=== PATIENT | female | born 1980 | race Caucasian/White ===

== ENCOUNTER 2019-12-07 14:47 | Emergency (ER) | payer BC, SELFPAY ==
[2019-12-07 14:55] VITALS: BP 122/98; PULSE 86; RESP 14; TEMP 36.6; O2SAT 100
--- NOTE | 2019-12-07 15:01 | ED.DENTAL ---
HPI - Dental/Oral General Chief complaint: Dental/Oral Stated complaint: tooth/gum pain Time Seen by Provider: 12/07/19 15:01 Source: patient and RN notes reviewed History of Present Illness HPI Narrative: Patient is a 39-year-old female who presents the urgent care with complaints of left lower dental pain. Patient states that approximately 5 months ago she broke off the left lower teeth. States that within the last 3 days the pain has increased with sore gums. Patient states she has been using Aleve. Denies of any fever, chills, nausea, vomiting. Patient states she does have dental insurance but has been unable to get into a dentist. No other acute complaints. No acute distress noted. Patient aware of the plan of care. Some parts of this dictation were generated by voice recognition software and may contain typographical and/or grammatical inaccuracies. Related Data Home Medications Medication Instructions Recorded Confirmed fluoxetine 20 mg PO DAILY 12/07/19 12/07/19 trazodone 50 mg PO HS 12/07/19 12/07/19 Allergies Allergy/AdvReac Type Severity Reaction Status Date / Time No Known Allergies Allergy Verified 12/07/19 15:04 Review of Systems Review of Systems: Narrative: CONSTITUTIONAL: Denies fever, chills, or sweats. EYES: Denies visual changes, redness, or discharge. ENT: Denies rhinorrhea, congestion, sore throat, or otalgia. Reports of left lower dental pain CARDIOVASCULAR: Denies chest pain, palpitations, or edema. RESPIRATORY: Denies cough or dyspnea. GASTROINTESTINAL: Denies abdominal pain, nausea, vomiting, or diarrhea. GENITOURINARY: Denies dysuria or hematuria. SKIN: Denies rash or itching. MUSCULOSKELETAL: Denies back pain, joint pain, or myalgia. NEUROLOGIC: Denies headache, numbness, or weakness. All other systems reviewed are negative, except as documented in HPI. PMFSH Comments At the time of my signature, I reviewed and agree with the nursing past medical, surgical, social, and family history. There is no relevant family history pertinent to the patient complaint. Exam Narrative: Exam Narrative: GENERAL: This is a well-nourished, well-developed patient, in no apparent distress. HEAD: normocephalic, atraumatic. EYES: PERRL. Sclera clear/white. Vision is grossly intact. EARS: External ears normal, auditory canals clear and without drainage, TMs normal without perforation. Hearing grossly intact. NOSE: External nose normal with no obvious nasal discharge, nares without redness, no rhinorrhea. THROAT: Mucous membranes moist, posterior pharynx clear. DENTAL: Very poor oral hygiene with notable periodontal disease, excess dental calculus throughout, broken/avulsed lower left premolar through lower left second molar tooth #21 through 18 NECK: Neck supple, non-tender without lymphadenopathy, masses or thyromegaly. SKIN: warm, intact with no suspicious lesions or rash, good texture and turgor. NEURO: awake, alert, and oriented to person, place and time. There were no obvious focal neurologic abnormalities. EXTREMITIES: No clubbing, cyanosis, or edema. Course Vital Signs Vital signs: Vital Signs Temperature 97.8 F 12/07/19 14:55 Pulse Rate 86 12/07/19 14:55 Respiratory Rate 14 12/07/19 14:55 Blood Pressure 122/98 H 12/07/19 14:55 Pulse Oximetry 100 12/07/19 14:55 Temperature 97.8 F 12/07/19 14:55 Pulse Rate 86 12/07/19 14:55 Respiratory Rate 14 12/07/19 14:55 Blood Pressure 122/98 H 12/07/19 14:55 Pulse Oximetry 100 12/07/19 14:55 Reviewed-patient is informed that they may have pre-hypertension or hypertension based on a blood pressure reading in the department. I recommend the patient call the primary care provider listed on their discharge instructions or a physician of their choice this week to arrange follow-up for further evaluation of possible pre-hypertension or hypertension. MDM - Dental/Oral MDM Narrative Medical decision making narrative: Advised the pa
== END 2019-12-07 15:14 | disposition home or self-care (01) ==
PROVIDERS: Emergency Provider Nurse Practitioner Family
DX: K04.7 Periapical abscess without sinus (principal); K02.9 Dental caries, unspecified
CPT/HCPCS: 99213; G0463

== ENCOUNTER 2020-01-04 15:07 | Emergency (ER) | payer BC, SELFPAY ==
[2020-01-04 15:12] VITALS: BP 137/93; PULSE 93; RESP 20; TEMP 36.4; O2SAT 100
--- NOTE | 2020-01-04 15:36 | ED.DENTAL ---
HPI - Dental/Oral General Chief complaint: Dental/Oral Stated complaint: tooth pain Time Seen by Provider: 01/04/20 15:37 Source: patient Mode of arrival: ambulatory Limitations: no limitations History of Present Illness HPI Narrative: Belgica Callejas is a 39 yo female with a PMH of depression who comes to express care with dental pain. Has very poor dentition on the left with broken tooth in the back of lower molars states that is been hurting her for couple days but today the pain is unbearable (tooth 17-19) Related Data Home Medications Medication Instructions Recorded Confirmed fluoxetine 20 mg PO DAILY 12/07/19 12/07/19 trazodone 50 mg PO HS 12/07/19 12/07/19 Allergies Allergy/AdvReac Type Severity Reaction Status Date / Time clavulanic acid Allergy Blister Verified 01/04/20 15:26 Review of Systems Review of Systems: Narrative: CONSTITUTIONAL: Denies fever, chills, sweats. EYES: Denies visual changes, redness, discharge. ENT: Denies rhinorrhea, congestion, sore throat, otalgia. Multiple broken teeth CARDIOVASCULAR: Denies chest pain, palpitations, edema. RESPIRATORY: Denies dyspnea, wheezing, cough GASTROINTESTINAL: Denies abdominal pain, nausea, vomiting, diarrhea. GENITOURINARY: Denies dysuria, hematuria, abnormal discharge SKIN: Denies rash or itching. NEUROLOGIC: Denies numbness, or focal weakness. PSYCHIATRIC: Denies anxiety or depression. PMFSH Past Medical History Medical History Need for dental care Family History Family History (Updated 01/04/20 @ 15:42 by Ashley Bennett CNP) Other No acute medical problems Social History Social History Smoking status: Current every day smoker Tobacco type: cigarettes Alcohol intake: current Comments At time of signature, I agree with nursing past medical, surgical, social and family history. There is no relevant family history pertinent to the presenting complaint. Patient's blood pressure is elevated today should follow up with primary care physician Exam Narrative: Exam Narrative: GENERAL: This is a well-nourished, well-developed patient, in mild distress. HEAD: normocephalic, atraumatic. EYE. Sclera clear/white. Vision is grossly intact. EARS: External ears normal, Hearing grossly intact. NOSE: External nose normal without nasal discharge, nares without redness, no rhinorrhea Mouth: Multiple teeth broken or fractured the gum THROAT: Mucous membranes moist, posterior pharynx NECK: Neck supple, CARDIOVASCULAR: Regular rate and rhythm without murmurs, gallops, or rubs. RESPIRATORY: Clear to auscultation. Breath sounds equal bilaterally. No wheezes, rales, or rhonchi. GASTROINTESTINAL: Abdomen soft, SKIN: warm, intact with no suspicious lesions or rash, good texture and turgor. NEURO: awake, alert, and oriented to person, place and time. There were no obvious focal neurologic abnormalities. Steady gait EXTREMITIES: Normal range of motion. BACK: Nontender without deformity Course Course Emergency Course: Patient here due to dental pain has dentist at [facility] dental school started on penicillin and [place], told to gargle with salt water. take ibuprofen 3 times a day with food Vital Signs Vital signs: Vital Signs Temperature 97.6 F 01/04/20 15:12 Pulse Rate 93 01/04/20 15:12 Respiratory Rate 20 01/04/20 15:12 Blood Pressure 137/93 H 01/04/20 15:12 Pulse Oximetry 100 01/04/20 15:12 Temperature 97.6 F 01/04/20 15:12 Pulse Rate 93 01/04/20 15:12 Respiratory Rate 20 01/04/20 15:12 Blood Pressure 137/93 H 01/04/20 15:12 Pulse Oximetry 100 01/04/20 15:12 MDM - Dental/Oral Differential Diagnosis Differential diagnosis: Likely gingival abscess, dental caries, dental abscess, aphthous ulcer and other Discharge Plan Discharge Clinical Impression: Dental abscess Patient Disposition:
== END 2020-01-04 15:50 | disposition home or self-care (01) ==
PROVIDERS: Emergency Provider Nurse Practitioner
DX: K04.7 Periapical abscess without sinus (principal); F17.210 Nicotine dependence, cigarettes, uncomplicated
CPT/HCPCS: 99213; G0463

== ENCOUNTER 2020-04-13 12:18 | Emergency (ER) | payer BC, SELFPAY ==
[2020-04-13 12:28] VITALS: BP 145/90; PULSE 98; RESP 16; TEMP 36.7; O2SAT 100
[2020-04-13 12:35] VITALS: BP 145/90; PULSE 98; RESP 16; TEMP 36.7; O2SAT 100
--- NOTE | 2020-04-13 12:41 | ED.DENTAL ---
HPI - Dental/Oral General Chief complaint: Dental/Oral Stated complaint: tooth pain Source: patient Mode of arrival: ambulatory Limitations: no limitations History of Present Illness HPI Narrative: Patient presents for evaluation of right upper dental pain for the last week. States the pain is throbbing, rated 7 out of 10 in severity, without radiation. No fever, chills, nausea, vomiting, trismus, problems handling secretions. She is not diabetic. She smokes half a pack per day. She attempted to seek dental care but they informed her to be several hundreds of dollars to extract a single tooth. She is cognizant of the fact that she has several teeth that need to be extracted. She is attempted to take Tylenol and NSAIDs with minimal improvement in her symptoms or after Related Data Allergies Allergy/AdvReac Type Severity Reaction Status Date / Time clavulanic acid Allergy Blister Verified 04/13/20 12:30 Review of Systems Review of Systems: Narrative: CONSTITUTIONAL: Denies fever, chills, or sweats. EYES: Denies visual changes, redness, or discharge. ENT: Reports right upper dental pain. Denies rhinorrhea, congestion, sore throat, or otalgia. CARDIOVASCULAR: Denies chest pain, palpitations, or edema. RESPIRATORY: Denies cough or dyspnea. GASTROINTESTINAL: Denies abdominal pain, nausea, vomiting, or diarrhea. GENITOURINARY: Denies dysuria or hematuria. SKIN: Denies rash or itching. MUSCULOSKELETAL: Denies back pain, joint pain, or myalgia. NEUROLOGIC: Denies headache, numbness, dizziness, or weakness. PSYCHIATRIC: Denies anxiety or depression. [facility] Past Medical History Medical History (Updated 04/13/20 @ 12:46 by OBDULIA Garcia, ) Anxiety Depression Need for dental care Surgical History Surgical History H/O lithotripsy Family History Family History Mother No acute medical problems Father No acute medical problems Social History Social History Smoking packs per day: 0.5 Smoking cigarettes per day: 10.0 Smoking status: Current every day smoker Tobacco type: cigarettes Alcohol intake: current Substance use: never Living arrangements: with family Gender identity (if verbalized by the patient): Female Sexual Orientation (if Verbalized by the Patient): Straight or Heterosexual Spiritual care concerns: No Exam Narrative: Exam Narrative: GENERAL: Well-appearing, well-nourished, and in no acute distress. HEAD: Normocephalic, atraumatic. EYES: PERRLA and EOMI. ENT: Nares clear, no rhinorrhea or epistaxis. Mucous membranes moist. Oropharynx without tonsillar hypertrophy exudate or other lesions. Bilateral TMs pearly lizama nonbulging. Multiple teeth are fractured, necrotic, and eroded NECK: Supple. No adenopathy or masses. No carotid bruits or JVD CHEST: Clear to auscultation. No respiratory distress. No wheezes rales or rhonchi HEART: Regular rate and rhythm. No murmur heard. Normal peripheral pulses. ABDOMEN: Soft, nontender, nondistended, normal active bowel sounds. EXTREMITIES: Normal range of motion. No edema. SKIN: Warm, dry, no rash. NEURO: No focal deficits. Alert and oriented x3. PSYCH: Normal mood and affect. Course Course Emergency Course: This is a 39-year-old female with recurrent dental pain and known dental disease including several dental fractures. She is attempted to seek dental care but states that extraction cost is prohibitive. On physical exam she has no large abscess noted no evidence of cellulitis. She has significant dental decay with multiple fractures present. Will place her on oral antibiotics and give her a prescription for Tylenol with codeine. She can follow-up with dentist outpatient for further evaluation and treatment Vital Signs Vital signs: Vital Signs Temperatur
== END 2020-04-13 12:52 | disposition home or self-care (01) ==
PROVIDERS: Emergency Provider Nurse Practitioner; PCP Pediatrics
DX: K08.89 Other specified disorders of teeth and supporting structures (principal); K02.9 Dental caries, unspecified; S02.5XXA Fracture of tooth (traumatic), initial encounter for closed fracture; F17.210 Nicotine dependence, cigarettes, uncomplicated
CPT/HCPCS: 99213; G0463

== ENCOUNTER 2023-12-17 19:22 | Emergency (ER) | payer OTHER, SELFPAY ==
[2023-12-17 19:31] VITALS: BP 129/84; PULSE 104; RESP 16; TEMP 36.4; O2SAT 100
--- NOTE | 2023-12-17 19:41 | ED.URI ---
HPI - URI/Sore Throat General Chief Complaint: Upper Respiratory Infection Stated Complaint: Sore Throat Time Seen by Provider: 12/17/23 19:41 Source: patient, RN notes reviewed and old records reviewed Mode of arrival: ambulatory Limitations: no limitations History of Present Illness HPI Narrative: 43 year old female who [facility] to [facility] care with complaints of sore throat headache without fever starting today.Patient reports that she has been taking Angela today for her symptoms. Patient reports that her symptoms are similar to when she has had prior strep throat. Patient did state that she did take a home COVID test this evening which was negative. Patient concerned for COVID since youngest child at age of 6 almost from COVID 6 years. Patient reports no fevers chills sweats or ay body aches. MD elicited complaint: sore throat and other (headache) Pertinent past history: other (strep throat) Onset (ago): day(s) (1) Severity: moderate Pain scale (0-10): 6 Description of mucous: clear Able to tolerate fluids by mouth: Yes Treatments prior to arrival: other (Angela ) Related Data Home Medications Medication Instructions Recorded Confirmed escitalopram oxalate 20 mg tablet mg 12/17/23 Allergies Allergy/AdvReac Type Severity Reaction Status Date / Time clavulanic acid Allergy Blister Verified 12/17/23 19:28 Review of Systems Review of Systems: CONSTITUTIONAL: Denies malaise, chills, sweats, no fever. EYES: Denies visual changes, redness, or discharge. ENT: Reports rhinorrhea, congestion, sinus pain, no otalgia and positive sore throat. CARDIOVASCULAR: Denies chest pain, palpitations, or edema. RESPIRATORY: Reports no acute cough.? Denies dyspnea. GASTROINTESTINAL: Denies abdominal pain, nausea, vomiting, diarrhea SKIN: Denies rash or itching. MUSCULOSKELETAL: Denies myalgia. NEUROLOGIC:reports headache. All systems reviewed & are unremarkable except as noted in HPI and below PMFSH Past Medical History Medical History (Updated 12/17/23 @ 20:13 by Kayy Rodriguez NP) Anxiety Depression Need for dental care Seasonal allergies Surgical History Surgical History H/O lithotripsy H/O parathyroidectomy H/O tubal ligation Previous section x2 Family History Family History Mother No acute medical problems Father No acute medical problems Social History Social History Smoking packs per day: 0.5 Smoking cigarettes per day: 10.0 Smoking status: Current every day smoker Tobacco type: cigarettes Alcohol intake: current Substance use: never Living arrangements: with family Gender identity (if verbalized by the patient): Female Sexual Orientation (if Verbalized by the Patient): Straight or Heterosexual Spiritual care concerns: No Comments At time of signature, agree with nursing past medical, surgical, social and family history. There is no relevant family history pertinent to the presenting complaint Exam Narrative: GENERAL: Well-appearing, well-nourished, and in no acute distress. HEAD: Normocephalic EYES: PERRLA, conjunctivae clear ENT: Nares clear, turbinates edematous and erythematous, clear discharge. Mucous membranes moist. TM pearly lizama with dull light reflex bilaterally; no tragal tenderness. Oropharynx erythematous without lesions. Tonsils not enlarged and without exudate, no drooling, no hoarseness, no trismus, uvula midline.post nasal drainage NECK: Supple. No lymphadenopathy CHEST: Clear to auscultation, breath sounds equal. No wheezing, rhonchi, rales, or stridor. No respiratory distress, speaks in full sentences.MANUELITO 100% on room air HEART: Regular rate and rhythm. No murmur heard. SKIN: Warm, dry, no rash. NEURO: Alert and oriented x3. PSYCH: Normal m
[2023-12-19 14:27] LABS: EDSTREPNEGPOS1 Negative (Negative)
== END 2023-12-17 20:00 | disposition home or self-care (01) ==
PROVIDERS: Emergency Provider Registered Nurse
DX: J02.9 Acute pharyngitis, unspecified (principal); F41.8 Other specified anxiety disorders; F17.210 Nicotine dependence, cigarettes, uncomplicated
CPT/HCPCS: 87081; 87880; 99213; G0463